=== PATIENT | female | born 1995 | race Caucasian/White ===

== ENCOUNTER 2022-03-05 11:26 | Outpatient (CLI) | payer OTHER, SELFPAY ==
--- NOTE | 2022-03-05 11:51 | ECG_ITS ---
Measurements Intervals [place] Rate: 141 P: 52 WV: 137 QRS: 62 QRSD: 75 T: 19 QT: 281 QTc: 431 Interpretive Statements SINUS TACHYCARDIA BORDERLINE ST-T WAVE ABNORMALITY- INFERIOR LEADS ABNORMAL ECG Electronically Signed On 03-05-2022 12:53:34 CDT by Fredrick Aaron D.O.
== END 2022-03-05 11:27 | disposition home or self-care (01) ==
PROVIDERS: PCP Internal Medicine; Visit Provider Student in an Organized Health Care Education/Training Program
DX: R00.0 Tachycardia, unspecified (principal); R94.31 Abnormal electrocardiogram [ECG] [EKG]
CPT/HCPCS: 93005

== ENCOUNTER 2022-07-11 15:23 | Inpatient (IN) | payer OTHER, SELFPAY ==
[2022-07-11] VITALS (131 sets, daily range): BP systolic 86–139; BP diastolic 38–87; PULSE 33–203; TEMP 36.8–36.9; O2SAT 68–100; BMI 28.2
[2022-07-11 16:47] LABS: Basophils Absolute Auto 0.1 K/mm3 (0.0-0.1); Basophils Percent Auto 0.4 % (0.2-1.2); Eosinophils Absolute Auto 0.1 K/mm3 (0-0.3); Hematocrit 41.1 % (37.0-47.0); Hemoglobin 14.2 g/dL (12.0-15.0); Immature Granulocyte Absolute 0.18 K/mm3 (0.00-0.031); Immature Granulocyte Percent A 1.6 % (0-0.5); Lymphocytes Absolute Auto 1.95 K/mm3 (0.9-3.2); Lymphocytes Percent Auto 16.9 % (18.3-44.2); Mean Corpuscular HGB Conc 34.5 g/dl (32-36); Mean Corpuscular Hemoglobin 32.1 pg (26-34); Mean Platelet Volume 10.1 fl (7.4-10.4); Monocytes Absolute Auto 0.7 K/mm3 (0.1-0.6); Monocytes Percent Auto 6.3 % (2.6-8.5); Neutrophils Absolute Auto 8.5 K/mm3 (1.3-6.7); Neutrophils Percent Auto 73.8 % (45.5-73.1); Platelet Count Result 166 k/mm3 (150-375); Red Blood Count 4.42 M/mm3 (4.2-5.4); Red Cell Distribution Width 13.1 % (11.5-14.5); White Blood Count 11.5 K/mm3 (4.5-10.0)
[2022-07-11] MEDS: LACTATED RINGERS 1,000 ML 999 ML IV CONT ×3 (17:06→20:11)
--- NOTE | 2022-07-11 17:24 | LDADM ---
This patient, Christopher Brown, was admitted to Labor/Delivery/Recovery 101 on 07/11/22 at 15:23. Plans for labor, pain management and were discussed with patient. Patient/family oriented to hospital policies and general routines including ID bracelet, bed and alarms, visiting hours, pain management, procedures, bathroom and other care routines, personal items, smoking policy, room service/diet and guest tray routines, security routines, and visiting hours. Patient/Family are encouraged to report perceived risks to care and to ask questions if they do not understand what they are told or what they should do. See OBIX for further documentation.
--- NOTE | 2022-07-11 17:32 | WPDANESEPP ---
Anes - Eval Pre Procedure Procedure: labor epidural Date/Time: 07/11/22 17:32 Surgeon: teresa Preop Diagnosis: pain during labor Pre Op Diagnosis: labor Patient Data Age: 27 Gender: F Height: 1.63 m Weight: 74.54 kg Last Vital Signs Pulse 94 07/11/22 17:31 BP 124/67 07/11/22 17:31 Allergies Allergy/AdvReac Type Severity Reaction Status Date / Time No Known Allergies Allergy Verified 07/09/22 12:12 Home Medications Medication Instructions Recorded Confirmed Type vits no.126-ferrous fum 1 tablet PO DAILY 11/28/21 07/11/22 History 28 mg iron-folic acid 800 mcg tablet (Classic ) cholecalciferol (vitamin D3) 125 125 mcg PO DAILY 06/18/22 06/18/22 History mcg (5,000 unit) tablet (Vitamin D3) famotidine 20 mg tablet (Pepcid AC) 20 mg PO BID 06/18/22 06/18/22 History docusate sodium 50 mg capsule 50 mg PO BID 07/11/22 07/11/22 History Laboratory Tests 07/11/22 07/11/22 07/11/22 16:38 16:38 16:38 WBC 11.5 K/mm3 H K/mm3 (4.5-10.0) RBC 4.42 M/mm3 M/mm3 (4.2-5.4) Hgb 14.2 g/dL g/dL (12.0-15.0) Hct 41.1 % % (37.0-47.0) MCV 93.0 fl fl (80-100) MCH 32.1 pg pg (26-34) MCHC 34.5 g/dl g/dl (32-36) RDW 13.1 % % (11.5-14.5) Plt Count 166 k/mm3 k/mm3 (150-375) MPV 10.1 fl fl (7.4-10.4) Immature Gran % (Auto) 1.6 % H % (0-0.5) Neut % (Auto) 73.8 % H % (45.5-73.1) Lymph % (Auto) 16.9 % L % (18.3-44.2) [place] % (Auto) 6.3 % % (2.6-8.5) Eos % (Auto) 1.0 % % (0-4.4) Baso % (Auto) 0.4 % % (0.2-1.2) Lymph # (Auto) 1.95 K/mm3 K/mm3 (0.9-3.2) [place] # (Auto) 0.7 K/mm3 H K/mm3 (0.1-0.6) Eos # (Auto) 0.1 K/mm3 K/mm3 (0-0.3) Baso # (Auto) 0.1 K/mm3 K/mm3 (0.0-0.1) Abs Immat Gran (auto) 0.18 K/mm3 H K/mm3 (0.00-0.031) Absolute Neuts (auto) 8.5 K/mm3 H K/mm3 (1.3-6.7) Absolute Nucleated RBC 0.0 K/mm3 K/mm3 (0.0-0.012) Nucleated RBC % 0.0 % % (0.0-0.2) RPR Pending HIV 1&2 Ab/P24 Ag 4thGn Pending Blood Type Antibody Screen 07/11/22 16:38 WBC RBC Hgb Hct MCV MCH MCHC RDW Plt Count MPV Immature Gran % (Auto) Neut % (Auto) Lymph % (Auto) [place] % (Auto) Eos % (Auto) Baso % (Auto) Lymph # (Auto) [place] # (Auto) Eos # (Auto) Baso # (Auto) Abs Immat Gran (auto) Absolute Neuts (auto) Absolute Nucleated RBC Nucleated RBC % RPR HIV 1&2 Ab/P24 Ag 4thGn Blood Type Pending Antibody Screen Pending Patient hx anesthesia problems: none Family hx anesthesia problems: none Results Review: All pre-operative results and documents have been reviewed as part of the pre-operative evaluation. [facility] Surgical History Surgical History Hx of tonsillectomy [place] teeth removed Family History Family History Mother Hypertension Hyperlipidemia Lung cancer Grandparent Hypertension Social History Social History Smoking status: Never smoker Second hand tobacco smoke exposure: No Alcohol intake: current Substance use: never Spiritual care concerns: No Exam Day of Procedure 07/11/22 17:32
[2022-07-11 17:37] LABS: HIV 1/2 Ab P24 Ag Result Negative (Negative)
[2022-07-11] MEDS: CALCIUM CARBONATE (TUMS) 500 MG (200 MG ELEMENTAL) PO (18:48)
[2022-07-11] MEDS: FAMOTIDINE 20 MG/2 ML VIAL IV PUSH (18:55)
--- NOTE | 2022-07-11 21:52 | PM.IMHP ---
H&P: HPI History of Present Illness Date/Time: 07/11/22 21:52 Chief Complaint: Leakage of fluid Narrative: A 27-year-old LMP 10/11/2021 currently 39 weeks gestation with BLANE 07/18/2022 who presented to labor and delivery complaints of leakage of fluid. Patient is dated by LMP consistent with ultrasound on 12/20/2021 at 10 weeks gestation. Patient reports leakage of clear fluid at approximately 3:10 p.m. Reports onset of contractions afterwards. Denies any vaginal bleeding. Reports good movement. Upon presentation to labor and delivery, patient was noted be grossly ruptured in labor. Decision was made to admit the patient to labor and delivery in labor. Review of Systems Review of Systems: All systems reviewed & are unremarkable except as noted in HPI and below Constitutional: Constitutional: Reports as per HPI and Reports no additional constitutional complaints Eyes: Eyes: Reports as per HPI and Reports no additional eye complaints ENT: Reports system reviewed and no additional complaints, except as documented and Reports as per HPI Cardiovascular: Cardiovascular: Reports as per HPI and Reports no additional cardiovascular complaints Respiratory: Respiratory: Reports as per HPI and Reports no additional respiratory complaints Gastrointestinal: Gastrointestinal: Reports as per HPI and Reports no additional gastrointestinal complaints Genitourinary: Genitourinary: Reports no additional female genitourinary complaints and Reports as per HPI Musculoskeletal: Musculoskeletal: Reports no additional musculoskeletal complaints and Reports as per HPI Integumentary/Breasts: Skin/Breast: Reports system reviewed and no additional complaints, except as docu and Reports as per HPI Neurologic: Reports system reviewed and no additional complaints, except as documented and Reports as per HPI Psychiatric: Psychiatric: Reports no additional psychiatric complaints and Reports as per HPI Endocrine: Endocrine: Reports no additional endocrine complaints and Reports as per HPI Hematologic/Lymphatic: Hematologic/Lymphatic: Reports no additional hematologic/lymphatic complaints and Reports as per HPI Allergic/Immunologic: Allergic/Immunologic: Reports no additional allergic/immunologic complaints and Reports as per HPI PMF Surgical History Surgical History Hx of tonsillectomy [place] teeth removed Family History Family History Mother Hypertension Hyperlipidemia Lung cancer Grandparent Hypertension Social History Social History Smoking status: Never smoker Second hand tobacco smoke exposure: No Alcohol intake: current Substance use: never Spiritual care concerns: No Meds Home Medications and Allergies Home Medications Medication Instructions Recorded Confirmed Type vits no.126-ferrous fum 1 tablet PO DAILY 11/28/21 07/11/22 History 28 mg iron-folic acid 800 mcg tablet (Classic ) cholecalciferol (vitamin D3) 125 125 mcg PO DAILY 06/18/22 06/18/22 History mcg (5,000 unit) tablet (Vitamin D3) famotidine 20 mg tablet (Pepcid AC) 20 mg PO BID 06/18/22 06/18/22 History docusate sodium 50 mg capsule 50 mg PO BID 07/11/22 07/11/22 History Allergies Allergy/AdvReac Type Severity Reaction Status Date / Time No Known Allergies Allergy Verified 07/09/22 12:12 Vital Signs Vital Signs - 24 hr 07/11/22 15:51 07/11/22 16:01 07/11/22 16:16 Temperature Pulse Rate 111 H 113 H 110 H Blood Pressure 138/80 126/77 126/74 Pulse Oximetry 07/11/22 16:31 07/11/22 16:46 07/11/22 17:01 Temperature Pulse Rate 95 92 107 H Blood Pressure 128/79 117/75 129/84 Pulse Oximetry 07/11/22 17:16 07/11/22 17:31 07/11/22 17:35 Temperature Pulse Rate 91 94 Blood Pressure 126/78 124/67 Pulse Oximet
--- NOTE | 2022-07-11 23:54 | WPDHPUPDATE1 ---
History and Physical Update Update Date/Time: 07/11/22 23:54 History and Physical has been reviewed, including an updated exam of the patient. There are NO changes in the patient's condition. Risks, benefits, and alternatives have been discussed and questions answered. Patient agrees to proceed with procedure.
--- NOTE | 2022-07-11 23:54 | PM.OBPRVD ---
OB - Delivery Note Procedure Delivery date: 07/11/22 Procedure: The patient is a 27-year-old now who presented to labor and delivery on the afternoon of 07/11/22 at 39 weeks gestation with complaints of leakage of fluid. Patient was noted be grossly ruptured and in labor at time of presentation. Patient was admitted to labor and delivery. She was approximately 4-5 cm dilated at time of presentation. Patient was admitted. Patient became uncomfortable and requested an epidural for pain management which was placed without difficulty. Patient continued to make progressive cervical change. She was noted to be fully dilated at 10:08 p.m. Patient was encouraged to push and found to be pushing well. She was prepped and draped for delivery. At 11:18 p.m., patient delivered head atraumatically and without difficulty in MAXIME presentation. Occiput restituted to maternal left side. With subsequent push, the infant's neck, shoulders, and rest of body delivered without difficulty. Terminal meconium was noted. Infant was crying spontaneously. Infant's nose and mouth were suctioned with bulb suction. was placed on maternal abdomen where care was assumed by awaiting nursing staff. Delayed cord clamping was performed for approximately 60 seconds. Cord was clamped and cut. A segment of cord was collected for cord gases. Cord blood was collected. The placenta was delivered spontaneous and intact. Uterine fundus was noted to be firm with massage. On inspection, a second degree perineal laceration was noted. This laceration was repaired with 2-0 Vicryl in usual fashion. Excellent hemostasis was noted. Straight catheterization was performed with return of approximately 50 cc of clear urine. Estimated blood loss for entire delivery was 300 cc. The infant was a live-born male infant, Apgars 8 and 9, weighing 8 lbs. 10 oz. Both mother and baby doing well at end of delivery. Delivery monitor: External FHT and External Uterine Route of delivery: Laceration Description: Perineal - 2nd Degree Delivery repair: vicryl (2-0 vicryl) Specimen: Yes (cord blood and cord gases) Quantitative Blood Loss (ml): 300 Anesthesia type: Epidural Disposition: Floor Complications: No immediate complications [place] Baby Date of : 07/11/22 Time of : 23:18 Weeks of gestation at delivery: 39 Infant gender: Male Weight (pounds): 8 Weight (ounces): 10 presentation: vertex position: Left Occiput Anterior Placenta delivery description: Spontaneous Cord Vessel Description: 3 Vessels and Delayed Cord Clamping (x 60s) score one minute: 8 score five minutes: 9 AMG Delivery Billing Delivery Delivery: Delivery Charge
[2022-07-12] VITALS (13 sets, daily range): BP systolic 95–125; BP diastolic 56–81; PULSE 84–123; RESP 16–18; TEMP 36.5–37.1; O2SAT 97–98
[2022-07-12] MEDS: OXYTOCIN 30 UNITS/NS 500 ML 30 UNITS/500 ML BAG 125 UNITS IV CONT (00:01)
[2022-07-12] MEDS: WITCH HAZEL 40 PADS 1 PAD TOPICAL (01:58)
[2022-07-12] MEDS: BENZOCAINE 20% AER SPR (*SP) 56 GM CAN 1 SPRAY TOPICAL (01:59)
[2022-07-12] MEDS: IBUPROFEN 600 MG TABLET PO ×3 (02:22→16:02)
--- NOTE | 2022-07-12 02:30 | OBPPTRN ---
Patient transferred to post room #292 via W/C. Support person present. Oriented to unit, room, information board, rooming in, admission packet and security measures. Patient verbalizes understanding.
[2022-07-12] MEDS: HYDROcodone/acetaminophen (*CRX) 10-325 MG TABLET 1 TAB PO ×2 (04:41→09:29)
[2022-07-12] MEDS: MULTIVIT/MIN/PREN/FOL AC/IRON TABLET 1 TAB PO (09:29)
[2022-07-12] MEDS: DOCUSATE SODIUM 100 MG CAPSULE PO ×2 (09:31→16:02)
--- NOTE | 2022-07-12 09:49 | PC.NURSE ---
[id number] Introductions were made, then consulted with patient to assess needs related to . Mother led the conversation with her?plans to feed?her infant and the?experience so far. Resources provided for inpatient and outpatient services using a resource guide and mom/baby guide. Mother voiced understanding of information and requested assistance. Mother works well with her infant. Encouraged understanding of the benefits of skin to skin (unwrapping infant and placing vertically on her chest), responsive feeding and how to watch for early feeding signs, frequency of feeding on demand about every 8-12 times in 24 hours (every 2-3 hours), milk production, duration of feeding, signs of adequate intake/output and how to record on the feeding sheet. Reviewed positioning and ear, shoulder, hip alignment, supporting the breast, asymmetrical latch (off-center), and leading with the chin with a big open side gape. Infant latched optimally to the right breast in football position. Infant was able to maintain latch with discomfort to mother at first, then discomfort subsides, for a few sucks. has difficulty maintaining latch. has the hiccups and repositions his latch to a shallow latch. Mother demonstrated how to effectively detach infant to protect her nipples. Nipple care reviewed with optimal latch and good positioning. Dr. Gustafson entered the room for an assessment of . [phone] Reviewed positioning, alignment, and optimal latching. A few attempts were made using football hold with the sandwich technique hold and breast compression to encourage milk expression. Infant latches well, then adjusts latch to a shallow latch. is not demonstrating great efforts at this time. After detaching nipple is misshaped. Parents state had a 30 minute breastfeed at 0730. Father of baby is going to change a copious stool and wet diaper. [id number] Resources used to facilitate learning were used with the visual handouts with QR codes, tool, mom and baby guide. Parents voiced understanding of responsive feedings, stimulating with skin to skin, hand expressed colostrum, massage touch, talking to infant to encourage if it has been 2 -3 hours since the start of the last , to call if does not latch or there is discomfort with . Reported to the primary RN.
--- NOTE | 2022-07-12 11:07 | WPDANLDPN2 ---
Anes-Prog Note L&D Date/Time: 07/12/22 11:07 Comfortable throughout: labor and delivery Neuraxial method: epidural Epidural/Spinal procedure site: clean & non-tender Neuro status: Neuro function grossly intact. Cardiovascular status: normal Respiratory status: normal Airway patency: baseline Mental status: baseline Post-Op hydration status: normal Vital Signs: Last Vital Signs Temp 36.9 C 07/12/22 08:30 Pulse 93 07/12/22 08:30 Resp 16 07/12/22 08:30 BP 106/56 L 07/12/22 08:30 Pulse Ox 97 07/12/22 08:30 O2 Del Method Room Air 07/12/22 03:00 Pain score (VAS): 1 I/O: Intake & Output 07/11/22 07/12/22 07/12/22 23:59 07:59 15:59 Intake Total 2000 200 Output Total 700 Balance 1300 200 Patient feedback: Patient satisfied with anesthetic care.
--- NOTE | 2022-07-12 11:34 | PC.NURSE ---
[id number] Consulted with patient to assess needs related to . Reviewed positioning and alignment, supporting breast, off-centered (asymmetrical latch) and leading with the chin with big open wide gape. latched optimally to the right breast in cross cradle position. Education given to mother of how to visualize suck/swallow ratios and drinking at the breast. Infant was able to maintain latch for a few minutes but adjusted to a shallow latch. Detached and repositioned to football position. latched optimally without discomfort to mother. Nipple care reviewed with optimal latch and good positioning. Mother voiced understanding of the education shared, observing rocking motion, swallowing seen and heard, and calling for assistance if the infant does not latch or if there is discomfort with . Reported to the primary RN.
--- NOTE | 2022-07-12 12:03 | PC.NURSE ---
[id number] Mother demonstrated that she is able to independently latch with appropriate positioning/alignment to the left breast using football positioning. She denies any nipple discomfort and is responsively . is currently meeting outcomes for weight, output, jaundice and feeding frequencies of 8-12 times in 24 hours. Pie teaching method was used to encouraged mother to ask questions and what to watch for to know her infant is getting enough. Mother is encouraged to call for assistance if her doesn?t latch or there is discomfort with latching. Mother voiced understanding of information shared and mom. Reported to the primary RN.
--- NOTE | 2022-07-12 12:26 | P.PNOB_ITS ---
OB - PN: Subj Subjective Date/time seen: 07/12/22 12:26 Doing well this AM. Patient reports generalized vaginal soreness reasonably controlled with pain medication. Minimal lochia. Voiding well. Ambulating without difficulty. OB - PN: Obj Data Labs CBC & Chem 7: 07/11/22 16:38 Labs: Laboratory Results - last 24 hr 07/11/22 07/11/22 07/11/22 16:38 16:38 16:38 WBC 11.5 H RBC 4.42 Hgb 14.2 Hct 41.1 MCV 93.0 MCH 32.1 MCHC 34.5 RDW 13.1 Plt Count 166 MPV 10.1 Immature Gran % (Auto) 1.6 H Neut % (Auto) 73.8 H Lymph % (Auto) 16.9 L [place] % (Auto) 6.3 Eos % (Auto) 1.0 Baso % (Auto) 0.4 Lymph # (Auto) 1.95 [place] # (Auto) 0.7 H Eos # (Auto) 0.1 Baso # (Auto) 0.1 Abs Immat Gran (auto) 0.18 H Absolute Neuts (auto) 8.5 H Absolute Nucleated RBC 0.0 Nucleated RBC % 0.0 HIV 1&2 Ab/P24 Ag 4thGn Negative Blood Type A Positive Antibody Screen Negative OB - PN A/P Assessment and Plan (1) Normal spontaneous vaginal delivery: Code(s): O80 - Encounter for full-term uncomplicated delivery Status: Acute Assessment and Plan: PPD#1 doing well continue routine care anticipate dc home tomorrow Time Spent With Patient Time: Total time spent is greater than 50% in coordination of care (as documented) at patient's floor/unit and/or counseling patient: Exam Const: General: cooperative, healthy appearing, comfortable and no acute distress GI: Inspection: non-distended GI Palp: Yes Soft to palpation and No Tenderness to palpation present (GI) Other: fundus firm below umbilicus Extrem: Right lower extremity: no edema Left lower extremity: no edema Other: no calf tenderness
[2022-07-12] MEDS: HYDROcodone/acetaminophen (*CRX) 5-325 MG TABLET 1 TAB (16:02)
[2022-07-12 16:51] LABS: Rapid Plasma Reagin Non-Reactive (NonReactive)
[2022-07-12] MEDS: ACETAMINOPHEN 325 MG TABLET 650 MG PO (19:46)
[2022-07-13] MEDS: IBUPROFEN 600 MG TABLET PO ×2 (04:08→10:01)
[2022-07-13] MEDS: ACETAMINOPHEN 325 MG TABLET 650 MG PO ×3 (04:08→16:53)
[2022-07-13 05:49] LABS: Hemoglobin 12.1 g/dL (12.0-15.0)
--- NOTE | 2022-07-13 08:15 | P.PNOB_ITS ---
OB - PN: Subj Subjective Date/time seen: 07/13/22 08:15 Patient comments: pain well controlled, tolerating diet and other (Decreasing lochia.) baby status: doing well and nursing well [place] feeding status: breast and bottle feeding OB - PN: Obj Data Labs CBC & Chem 7: 07/13/22 05:31 Labs: Laboratory Results - last 24 hr 07/11/22 07/13/22 16:38 05:31 Hgb 12.1 Hct 35.0 L RPR Non-reactive OB - PN A/P Plan day: 2 Plan: discharge home and other Comments: Patient doing well. Follow up 4-6 weeks. Discharge instructions provided. Time Spent With Patient Time: Total time spent is greater than 50% in coordination of care (as documented) at patient's floor/unit and/or counseling patient: Time with patient: less than 15 minutes Exam Const: General: no acute distress Eyes: General: appearance normal, both eyes and all related structures Resp: Effort & Inspection: normal respiratory effort GI: Other: fundus firm nontender below umbilicus Extrem: Other: no calf tenderness bilat Psych: Affect: normal affect Other: Abd: fundus firm below umbilicus, nontender Ext: nontender
[2022-07-13 09:30] VITALS: BP 126/76; PULSE 99; RESP 18; TEMP 37.1; O2SAT 98
[2022-07-13 10:00] VITALS: PULSE 100; RESP 16; O2SAT 98
[2022-07-13] MEDS: MULTIVIT/MIN/PREN/FOL AC/IRON TABLET 1 TAB PO (10:03)
[2022-07-13] MEDS: DOCUSATE SODIUM 100 MG CAPSULE PO ×2 (10:03→16:53)
--- NOTE | 2022-07-13 10:51 | PC.NURSE ---
Patient viewed the discharge video Mother & Baby Care, The First Two Weeks . Patient was given the opportunity and encouraged to ask questions. Patient verbalized understanding of information shared and has been given the mother/baby guide for home reference.
[2022-07-15 16:03] VITALS: BP 120/71; PULSE 94; RESP 18; TEMP 36.6; O2SAT 98
--- NOTE | 2022-08-12 11:22 | PM.OBDSVD ---
DS: Admitting Diagnosis Discharge Date 07/13/22 Admitting Diagnosis Active labor DS: Discharge Diagnosis Discharge Diagnosis (1) Normal spontaneous vaginal delivery: Code(s): O80 - Encounter for full-term uncomplicated delivery Status: Acute OB - DS: Summary Hospital Course Hospital Course: patient admitted after having spontaneous rupture of membranes and in active labor. She had an uncomplicated vaginal delivery. She had a second-degree perineal laceration. she did well on day 1 she had adequate pain control was tolerating regular diet and was ambulating well. On postop day 2 she was doing well baby was doing well she was discharged home with discharge precautions. OB Procedures : Ultrasound OB Procedures Intrapartum: Spontaneous Vag Delivery OB Procedures: : None Peripartum Data Delivery Method: Natural Vaginal Laceration Description: Perineal - 2nd Degree complications: none Status at Discharge Functional status at discharge: independent ambulation Time Spent with Patient Time attestation: Total time spent providing and/or coordinating discharge services: Exam Const: General: cooperative Orientation/consciousness: oriented to person, oriented to place and oriented to time HENMT: Face/Nose/Sinus: Normal external nose present Eyes: General: appearance normal, both eyes and all related structures Resp: Effort & Inspection: normal respiratory effort GI: Inspection: normal to inspection Skin: General skin exam: normal color Neuro: General: oriented to person, oriented to place and oriented to time Extrem: General: normal to inspection and no calf tenderness Psych: Appearance: grossly normal Mental Status: mental status grossly normal Discharge Plan Discharge Attending physician on discharge: Clare Rojas Consulting providers: Becki Marsh ; Lobo Denson Discharging Clinician: Tera Cheney Anticipated Discharge Date/Time: 07/13/22 08:19 Patient Disposition: Home, Self-Care Activity: may shower, no straining and pelvic rest Diet: regular Discharge Instructions: Education: Mom and Baby Guide Given to: Mother Follow-Up: Call your delivering provider's office for an appointment to be seen in: 6 Weeks Mom and baby should come to the [facility] for the follow-up appointment. Appointment Date/Time: July 15, 2022 at 3:30 pm What to expect at your follow-up visit: Blood Pressure Check Physical Assessment Call [phone] if you are unable to keep your appointment time. BREAST CARE: * Wear a snug supportive bra. * For engorgement discomfort: Breast Feeding: * Apply warm moist washcloths * Express milk as needed to relieve engorgement * Wear loose clothing Bottle Feeding: * May apply ice packs * For sore nipples: * Identify correct latch-on * Apply warm moist washcloths before and after nursing * Air dry nipples after nursing * May apply Lansinoh cream to nipples EPISIOTOMY/PERINEAL CARE: * Until bleeding stops, use your madhu bottle after urinating * Change your pad frequently throughout the day * You may take sitz baths several times a day (fill your bathtub with warm water and soak for 20 minutes.) Do NOT bathe in the water * No tub baths until seen by your physician - You may shower ACTIVITY: * Rest as much as possible. * Do not exercise or lift anything heavier than your baby for about 2 weeks * Avoid stairs or driving as much as possible for about 2 weeks. * Do not put anything into the vagina. No douching, tampons, or sexual activity until seen by physician. NOTIFY PHYSICIAN IF YOU HAVE ANY QUESTIONS OR IF ANY OF THE FOLLOWING SYMPTOMS OCCUR: * If your vaginal area becomes red, swollen, or more painful than what you have experienced in the hospital. * If your vaginal ble
== END 2022-07-13 17:45 | disposition home or self-care (01) | DRG 807 ==
LOC: ANHLDR 15:43 → ANHOB2 07-13 08:20 → ANHLDR 07-16 10:51 → ANHOB2 07-16 10:51
PROVIDERS: Admitting Provider Student in an Organized Health Care Education/Training Program; PCP Internal Medicine; Visit Provider Obstetrics & Gynecology
DX: O76 Abnormality in fetal heart rate and rhythm complicating labor and delivery (principal); Z37.0 Single live birth; O70.1 Second degree perineal laceration during delivery; Z3A.39 39 weeks gestation of pregnancy
CPT/HCPCS: 36415; 85014; 85018; 85025; 86592; 86703; 86850; 86900; 86901; A9270; G0432; J2590; J2795; J7120

== ENCOUNTER 2024-09-15 08:08 | Outpatient (CLI) | payer OTHER, SELFPAY ==
--- NOTE | ~2024-09-15 | US_ITS ---
US pelvic complete w TV Ordering provider: Stephie Escalona APRN History: . N93.0 - Postcoital and contact bleeding . Comparison: None. Technique: Transabdominal and endovaginal ultrasound of the pelvis (Doppler ultrasound interrogation techniques used as needed for this exam.) FINDINGS: CERVIX: Normal. UTERUS: Measures 6.9x 4x 5.2 cm in length which is within normal limits and is anteverted. No myomet rial masses. ENDOMETRIUM: Normal in thickness measuring 22 mm. (Note: the premenopausal endometrium may measure up to 16 mm when in the secretory phase.) No endometrial masses, cysts or fluid. CUL DE SAC: Small amount of free fluid in the posterior cul-de-sac. RIGHT OVARY: Normal in size measuring 2.6x 2.4x 2.4 cm. Normal echotexture. Doppler vascular flow pre sent. LEFT OVARY: Normal in size measuring 4.4x 4.1x 3.7 cm.Normal echotexture. Doppler vascular flow prese nt. Complex cyst is seen measuring 2.7 x 3.1 x 2.7 cm. ADNEXA: Normal. No mass. IMPRESSION: Thickened endometrium with complex cyst in the left ovary. Clinical correlation with the menstrual st age and follow-up is advised. Minimal fluid in the cul-de-sac. Otherwise, normal pelvic ultrasound. Reviewed, dictated and finalized at location A. AIGN SPECIALIST IMPRESSION: Thickened endometrium with complex cyst in the left ovary. Clinical correlation with the menstrual stage and follow-up is advised. Minimal fluid in the cul-de -sac. Otherwise, normal pelvic ultrasound.
== END 2024-09-15 08:09 | disposition home or self-care (01) ==
PROVIDERS: PCP Nurse Practitioner Obstetrics & Gynecology; Visit Provider Nurse Practitioner Obstetrics & Gynecology
DX: N93.0 Postcoital and contact bleeding (principal)
CPT/HCPCS: 76830; 76856

== ENCOUNTER 2024-11-06 08:37 | Outpatient (CLI) | payer OTHER, SELFPAY ==
--- NOTE | ~2024-11-06 | US_ITS ---
EXAM: PELVIC ULTRASOUND HISTORY: ovarian cyst COMPARISON: 09/15/2024. FINDINGS: UTERUS: 8.1 x 4.2 x 6.0 cm. The uterus is anteverted and anteflexed. The endometrial complex measures 15 mm. RIGHT OVARY: The right ovary is unremarkable in echogenicity and size measuring 3.0 x 4.3 x 3.6 cm. Arterial and venous flow are identified. Multiple follicles are detected. LEFT OVARY: The left ovary is unremarkable in echogenicity and size measuring 2.9 x 2.1 x 1.7 cm Both arterial and venous flow are identified. Multiple follicles are noted. No free fluid is identified within the pelvis. IMPRESSION: Unremarkable sonographic evaluation of the female pelvis, as detailed above Reviewed, dictated and finalized at location A. [employer] [employer]
== END 2024-11-06 08:38 | disposition home or self-care (01) ==
PROVIDERS: PCP Nurse Practitioner Obstetrics & Gynecology; Visit Provider Nurse Practitioner Obstetrics & Gynecology
DX: N83.209 Unspecified ovarian cyst, unspecified side (principal)
CPT/HCPCS: 76830; 76856